=== PATIENT | male | born 2000 | race Caucasian/White ===

== ENCOUNTER → 2018-08-13 | Outpatient (CLI) | payer BC ==
[2018-08-13 12:32] LABS: IRON,SERUM 124 ug/dL (35-150)
[2018-08-13 12:41] LABS: TOTAL IRON BINDING CAPACITY 353 ug/dL (261-462)
[2018-08-13 13:08] LABS: FERRITIN 101 ng/mL (18-464)
[2018-08-17 15:05] LABS: CERULOPLASMIN 25.2 mg/dL (())
[2018-08-17 20:16] LABS: A1 PHENOTYPE 108 mg/dL (())
[2018-08-19 15:13] LABS: ANTISMOOTH MUSCLE ANTIBODY Negative (Negative)
== END ==
LOC: COL.RAD 10:30
PROVIDERS: Physician Assistant
DX: K76.0 Fatty (change of) liver, not elsewhere classified (principal); E66.01 Morbid (severe) obesity due to excess calories

== ENCOUNTER → 2019-04-22 | Outpatient (CLI) | payer BC | LOC: COL.RAD 04-20 09:45 | DX: R93.2 Abnormal findings on diagnostic imaging of liver and biliary tract (principal); K76.0 Fatty (change of) liver, not elsewhere classified ==

== ENCOUNTER → 2019-06-17 | Outpatient (CLI) | payer BC ==
[2019-06-17] VITALS (8 sets, daily range): BP systolic 94–147; BP diastolic 65–86; PULSE 7–72
[~2019-06-17] VITALS: Ht 175.3 cm; Wt 90.7 kg
[~2019-06-17] MED LIST: MULTI VITAMINS1 TAB PO
[2019-06-17 10:37] LABS: PROTHROMBIN TIME 11.2 SECONDS (9.7-12.8)
--- NOTE | 2019-06-17 11:25 | NUR ---
Dr Irvin here, procedure started
--- NOTE | 2019-06-17 11:35 | NUR ---
versed 0.5mg iv given for anxiety, no other changes
--- NOTE | 2019-06-17 11:42 | NUR ---
liver tissue recieved and put in formalin, bandaid over site, pt up in w/c and to rad holding area
== END ==
LOC: COL.RAD 09:43
PROVIDERS: Internal Medicine Gastroenterology
DX: K76.0 Fatty (change of) liver, not elsewhere classified (principal)
CPT/HCPCS: J2250